=== PATIENT | female | born 1975 | race Caucasian/White ===

== ENCOUNTER 2017-01-03 03:52 | Emergency (ER) | payer SELFPAY ==
[~2017-01-03] VITALS: Ht 160 cm; Wt 80.5 kg
[~2017-01-03 03:52] MED LIST: GABA250S PO; RIVA20TA PO; [UNRECOGNIZED DRUG - CODE] PO
[2017-01-03 04:00] VITALS: Ht 160 cm; Wt 80.5 kg
== END 2017-01-03 04:23 | disposition left against medical advice (07) ==
LOC: E/R 03:52
DX: Z53.21 Procedure and treatment not carried out due to patient leaving prior to being seen by health care provider (principal)